=== PATIENT | male | born 1935 | race Caucasian/White ===

== ENCOUNTER → 2017-11-25 | Outpatient (CLI) | payer OTHER ==
[~2017-11-25] MED LIST: ASPIR 8181 MG PO; ATIVAN0.5 MG PO; BLOOD THINNER; CEPHALEXIN 500500 M3 PO; HALDOL 0.5 MG0.5 MG PO; HYDROCERIN CREA1 JAR TOP; HYDROCODONE-AP1 EAC6 PO; IRON325 PO; MSL20MG/ML PO; PLAVIX 75 MG TA75 M1 PO; TOPROL XL25 MG PO; TRIAMCINOLONE A80 G2 TOP; TYLENOL325 MG PO; VITAMIN B-121000 MCG PO; VITAMIN B-12500 MCG PO; VITAMINC500 PO
== END ==
LOC: ULTRA 07:33
DX: I65.23 Occlusion and stenosis of bilateral carotid arteries (principal)

== ENCOUNTER → 2018-04-03 | Outpatient (CLI) | payer OTHER ==
[~2018-04-03] MED LIST changes: -ATIVAN0.5 MG PO; -HALDOL 0.5 MG0.5 MG PO; -MSL20MG/ML PO; -PLAVIX 75 MG TA75 M1 PO
== END ==
LOC: RAD 12:00
DX: J90 Pleural effusion, not elsewhere classified (principal); M50.323 Other cervical disc degeneration at C6-C7 level; R59.9 Enlarged lymph nodes, unspecified

== ENCOUNTER 2018-04-27 14:15 | Inpatient (IN) | payer OTHER ==
[~2018-04-27] VITALS: Ht 172.7 cm; Wt 97.5 kg
--- NOTE | ~2018-04-27 | HC ---
[facility] [place] [address] CONSULTATION Name: HAKAN MARINO Steve Room #: 242-P [facility] IN ..#: [id number] Admission: 04/27/18 Attend Phys: Oksana Duncan MD Discharge: Date of : 34 Report #: [id number] THIS REPORT FOR: //name// CC: Oksana TYSON unknown DATE OF SERVICE: 04/30/2018 CHIEF COMPLAINT: Gluteal pressure ulceration. HISTORY OF PRESENT ILLNESS: This is an 82-year-old male patient who is admitted and seen in the Intensive Care Unit with septic shock. He was noted to have right gluteal ulceration. I have been asked to see him with regard to wound care. The patient apparently fell several weeks ago and not been feeling well since that time, he developed cough and some diarrhea and chills. He was brought to the Emergency Department, found to be in respiratory failure, required intubation and remains in the Intensive Care Unit on multiple drips. He is intubated and sedated at this time, is not able to provide any information about himself. The patient's chart is reviewed. He is noted to have a history of severe peripheral vascular disease, chronic iron deficiency anemia and cellulitis. ALLERGIES: None. FAMILY HISTORY: Positive for diabetes and heart disease. SOCIAL HISTORY: The patient has a history of tobacco abuse for almost 50 years. No history of alcohol abuse. MEDICATIONS: Include albuterol, Zithromax, chlorhexidine, dexmedetomidine, famotidine, glucagon, magnesium oxide, Zosyn, potassium. REVIEW OF SYSTEMS: Unobtainable due to the patient's unresponsiveness. PHYSICAL EXAMINATION: VITAL SIGNS: At this time include pulse 73, respiratory rate 15, blood pressure 118/59, temperature 97.9. GENERAL: This is a chronically ill-appearing male patient who is sedated on a ventilator. HEENT: Head is normocephalic. Nose is clear. Throat demonstrates endotracheal tube in place. NECK: Supple. LUNGS: Diminished. HEART: Tachycardic without murmur. ABDOMEN: Soft. EXTREMITIES: The gluteal region demonstrates what appears to be a stage 3 [facility] [address] [place] [address] CONSULTATION Name: HAKAN MARINO Steve Room #: 242-P [facility] IN [facility]#: [id number] Admission: 04/27/18 Attend Phys: Oksana Duncan MD Discharge: Date of : 34 Report #: [id number] pressure ulcer on the right buttock. It is relatively clean and granulating. It does not appear to be new. It has slightly rolled edges indicating that this has likely been present prior to this admission; although, I cannot find any records to review at this time. NEUROLOGIC: The patient is not responsive. He is sedated. LABORATORY DATA: Sodium 146, potassium 4.0, chloride 112, CO2 of 26, BUN 10, creatinine 0.7. Albumin is low at 1.7. White blood cell count is 9000, hemoglobin 8.2. CLINICAL IMPRESSION: 1. Stage 3 pressure ulcer to the right gluteal region. This does not appear to be an acute pressure ulceration by its clinical appearance and I suspect it was present prior to hospitalization. We will look for prehospitalization medical records. 2. Sepsis. 3. Respiratory failure requiring mechanical ventilation. 4. Severe protein-calorie malnutrition. RECOMMENDATIONS: At this point in time, the patient was placed in low air loss mattress. He will need q. 2 hour turning and repositioning. PRAFO boots to both lower extremities for pressure prophylaxis of the heel. We will recommend a bordered foam to the gluteal ulcer to be changed Saturday, Saturday, Saturday and p.r.n. soiling or displacement. He would need aggressive nutritional support to maximize wound healing. I appreciate being asked to see him in consultation. <ELECTRONICALLY SIGNED> By: Edward Jurado MD 05/01/18 0745 0314 Edward Jurado MD /nt
--- NOTE | ~2018-04-27 | EKG ---
[address] [employer] [place] [address] ELECTROCARDIOGRAM REPORT Name: MARINOHAKAN Room #: 238-P [facility] IN M.R.#: [id number] Admission: 04/27/18 Attend Phys: Oksana Duncan MD Discharge: Date of : 34 Report #: [id number] THIS REPORT FOR: //name// [facility] ED Test Date: 2018-04-27 Test Time: 14:28:11 Pat Name: HAKAN MARINO Department: Room: Gender: M Forensic Chemist: TSTOR : 1935 Requested By: Roel Greenwood Order Number: [id number] MD: Ravinder Jimenez Measurements Intervals [place] Rate: 151 P: ME: QRS: 79 QRSD: 96 T: 269 QT: 320 QTc: 508 Interpretive Statements Atrial fibrillation with rapid V-rate Repolarization abnormality, prob rate related Compared to ECG 12/16/2015 07:52:12 Early repolarization now present Sinus rhythm no longer present Electronically Signed On 04-28-2018 8:43:20 CDT by Ravinder Jimenez [email or web address] <ELECTRONICALLY SIGNED> By: Ravinder Jimenez MD, [facility] 04/28/18 0843 1428 1428 Ravinder Jimenez MD, [facility] /EPI
--- NOTE | ~2018-04-27 | PATH ---
[facility] [address] [address] PATHOLOGY RPT PROCEDURE Name: HAKAN MARINO Room #: 242-P [facility] IN M.R.#: [id number] Admission: 04/27/18 Date of : 34 Discharge: Report #: [id number] Path Case #: [id number] Note [facility] Accession Number: [id number] TESTS RESULT FLAG UNITS REF RANGE LAB Clinician Provided Cytology Information No. of containers..01 Other (Miscellaneous) Source: 01 NECK, R SUPRACLAVICULAR DIAGNOSIS: [A] 02 NECK LYMPH NODE, RIGHT SUPRACLAVICULAR, FINE NEEDLE ASPIRATION POSITIVE FOR MALIGNANT CELLS. UNDIFFERENTIATED SMALL CELL CARCINOMA IS PRESENT. THIS INTERPRETATION INCLUDES EVALUATION OF A CELL BLOCK. Comment: Examination shows crushed small blue cells in a background of lymphoid cells indicating aspiration of a lymph node. Part of this specimen was sent for flow cytometric analysis ([id number])to [facility]. It showed a low number of lymphocytes with no flow immunophenotypic evident of a lymphoproliferative disorder based on a limited antobody panel and an abnormal CD56 positive cell population. Please see separate report for details. Immunoshistochemical stains are performed on the cell block. CD56 and CD45 are repeated to characterize the cells in an architectural context. TTF1 / CD56 are strongly reactive. Ae1/Ae3 shows reactivity in a golgi-like pattern. CD45 is non reactive. Findings support a small cell carcinoma. The background of lymphoid tissue is highly suggestive of a metastatic small cell carcinoma. Clinical correlation is suggested. [place]: Dr. Miley Meza. Findings are conveyed to Dr. Mauricio Vasquez at approximately 9:45 AM on 05/06/18. Pathologist ICD10: 02 C34.90 Signed out by: Tayla Carrillo MD, Pathologist NPI- [id number] Performed by: 03 Danii Nova, Camp Coordinator ([facility]) Gross description: 01 25ML, COLORLESS, CLOUDY /LCS FLAG LEGEND: L-Low Normal,H-High Normal,LL-Alert Low,HH-Alert High <-Panic Low,>-Panic High,A-Abnormal,AA-Critical Abnormal Performed at: [address] [address] PATHOLOGY RPT PROCEDURE Name: NEDHAKAN Steve Room #: 242-P [facility] IN M.R.#: [id number] Admission: 04/27/18 Date of : 34 Discharge: Report #: [id number] Path Case #: [id number] 01 [facility] [address] [place] [address] Jhonatan Ramirez MD, 02 [facility] [address] Tayla Carrillo MD, 03 [facility] [address] [address] Justice Nicholson MD, Performed at: 01 [facility] [address], [place], [place] [id number] MD Jhonatan Ramirez MD Phone: [phone]
--- NOTE | ~2018-04-27 | HC ---
[facility] [place] [address] CONSULTATION Name: HAKAN MARINO Room #: 242-P [facility] IN M.R.#: [id number] Admission: 04/27/18 Attend Phys: Oksana Duncan MD Discharge: 05/08/18 Date of : 34 Report #: [id number] THIS REPORT FOR: //name// CC: Oksana Duncan [facility] unknown DATE OF SERVICE: 04/28/2018 CONSULTATION: Infectious diseases. HISTORY OF PRESENT ILLNESS: The patient is an 82-year-old white male admitted to [facility] on the afternoon of 04/27/2018 after he was found down. According to the family reports, he was "not feeling very good for several weeks." He had a few falls. He was complaining of diarrhea for about 6 months. Recently, he has been having more cough, more diarrhea. Workup showed right-sided pulmonary white-out suggestive of post-obstruction pneumonia and atelectasis due to cancer. Infectious Disease consultation was requested to assist with further evaluation and antibiotic management. PAST MEDICAL HISTORY: Significant for anemia and peripheral artery disease. The patient has really been in pretty good health prior to recent events. MEDICATION RECONCILIATION: Current medications include Zosyn 3.375 grams every 8 hours, vancomycin 750 mg every 12 hours, 2 mg p.r.n., glucagon, glucose, norepinephrine as needed for condition, fentanyl p.r.n., midazolam drip p.r.n. The patient did receive a single dose of levofloxacin while in the ER and succinylcholine and etomidate for intubation. FAMILY HISTORY: Noncontributory. SOCIAL HISTORY: Chart shows that the patient is , it mentions past history of tobacco use, but not quantified. No history available of alcohol or drugs. REVIEW OF SYSTEMS: Unavailable as the patient is sedated on a ventilator. PHYSICAL EXAMINATION: GENERAL: The patient appears chronically ill, somewhat wasted, sedated on ventilator, but comfortable, in no distress. VITAL SIGNS: Show the patient is afebrile. ENT: Demonstrates some temporal wasting. Nasogastric and endotracheal tubes are in position. SKIN: Very sallow without any apparent rash nor lesions. HEART: Sounds S1, S2. CHEST: Breath sounds are diminished. ABDOMEN: Belly is thin, soft, not tender. [address] [address] CONSULTATION Name: HAKAN MARINO Room #: 242-[facility] IN .R.#: [id number] Admission: 04/27/18 Attend Phys: Oksana Duncan MD Discharge: 05/08/18 Date of : 34 Report #: [id number] EXTREMITIES: Thin, otherwise unremarkable. The Park catheter is present and has clear urine. LABORATORY DATA: White count is 12.1, hemoglobin 8.9, hematocrit 29%, platelets 536,000. Electrolytes, BUN and creatinine are normal, glucose 124. Liver function tests are normal. Procalcitonin is normal. Lactate is slightly elevated at 3.2. BNP slightly elevated at 815, troponin 0.12. Blood gas on 50% on the ventilator 7.40 pH, pCO2 of 43, pO2 of 81. Urinalysis is negative. Chest x-ray showed changes as noted above. In addition, there is diffuse adenopathy in the chest as well as probable masses. EKG shows atrial fibrillation with pulse of 150. ASSESSMENT AND PLAN: In summary, a patient who has been having dwindling health over several months, he was found down and workup demonstrates a white-out of the right lung with probable mass and obstruction. The patient has been started on vancomycin and Zosyn, which will be appropriate for severe pneumonia. So far, there has been no sign of methicillin-resistant Staphylococcus aureus or other Gram-positive on any of the cultures. The patient has had minimal nosocomial exposures, so MRSA is unlikely and I think we could probably stop the vancomycin unless cultures show organism which would require this. We will continue Zosyn. We can check urinary antigens for legionella and pneumococcus. The diagnosis probably come from sputum cytology and culture either via suction or endoscopy. Endoscopy may be helpful to relieve the obstruction and re-inflate the right-sided lobes of the lung. For now, we will continue supportive therapy, ventilator, IV Zosyn and await results of cultures and cytology. If indeed this is a widely spread cancer in this debilitated elderly gentleman, the prognosis would be very poor. This is just infection with obstruction due to mucus, want to anticipate potential for excellent recovery with antibiotic and supportive therapy. I appreciate the opportunity of input in the care of this unfortunate gentleman. Thank you for requesting Infectious Disease consultation. Dr. Briceño will black pickler the case on Saturday. <ELECTRONICALLY SIGNED> By: Real Arriaza MD 05/13/18 2156 2230 0346 Real Arriaza MD /nt
--- NOTE | ~2018-04-27 | 2DMMODE ---
[facility] [address] [place] [address] 2 D/M-MODE ECHOCARDIOGRAM Name: HAKAN MARINO Room #: 238-P [facility] IN ..#: [id number] Admission: 04/27/18 Attend Phys: Oksana Duncan, Discharge: Date of : 34 Date of Service: 04/28/18 1053 Report #: [id number] THIS REPORT FOR: //name// APPROVED REPORT Study performed: 04/28/2018 08:12:53 EXAM: Comprehensive 2D, Doppler, and color-flow Echocardiogram Patient Location: Echo lab Room #: [facility] Status: routine BSA: 1.86 HR: 71 bpm BP: 105/56 mmHg Other Information Study Quality: Technically Difficult Technically limited study due to lung disease, patient on ventilator, inability to position patient. Indications hypotension, afib with RVR 2D Dimensions RVDd: 36.13 mm LVEF(%): 57.75 (>50%) IVSd: 12.25 (7-11mm) LVOT Diam: 18.73 (18-24mm) LVDd: 26.98 mm PWd: 11.43 (7-11mm) LVDs: 19.15 (25-40mm) Aortic Root: 27.35 mm IVC: 15.00 mm Harrington's LVEF: 57.75 % Volumes Left Atrial Volume (Systole) Single Plane 4CH: 30.29 mL Single Plane 2CH: 31.28 mL LA ESV Index: 18.00 mL/m2 Aortic Valve LVOT Max P.41 mmHg LVOT Max V: 0.92 m/s NOLVIA Vmax: 1.72 cm2 Mitral Valve E/A Ratio: 0.7 MV Decel. Time: 299.90 ms [facility] [place] [place] [address] 2 D/M-MODE ECHOCARDIOGRAM Name: HAKAN MARINO Steve Room #: 238-[facility]#: [id number] Admission: 04/27/18 Attend Phys: Oksana Duncan, Discharge: Date of : 34 Date of Service: 04/28/18 1053 Report #: [id number] MV E Max Arcadio.: 0.55 m/s MV A Arcadio.: 0.77 m/s MV PHT: 86.97 ms IVRT: 147.64 ms Pulmonary Valve PV Peak Arcadio.: 1.08 m/s PV Peak Gr.: 4.67 mmHg Tricuspid Valve TR Peak Arcadio.: 2.67 m/s RAP Estimate: 10.00 mmHg TR Peak Gr.: 28.45 mmHg PA Pressure: 38.00 mmHg Left Ventricle The left ventricle is normal size. Regional wall motion is not well visualized but grossly normal. There is normal left ventricular wall thickness. The left ventricular systolic function is normal. The left ventricular ejection fraction is within the normal range. LVEF is 60-65%. Grade I - abnormal relaxation pattern. Right Ventricle The right ventricle is normal size. The right ventricular systolic function is normal. Atria The left atrium size is normal. The right atrium size is normal. Aortic Valve Mild aortic valve calcification, trileaflet No aortic regurgitation is present. There is no aortic valvular stenosis. Mitral Valve The mitral valve is normal in structure. There is no mitral valve regurgitation noted. No evidence of mitral valve stenosis. Tricuspid Valve The tricuspid valve is normal in structure. Trace to mild tricuspid regurgitation. PAP is estimated at 38 mmHg. Pulmonic Valve The pulmonary valve is normal in structure. Trace pulmonic regurgitation. Great Vessels The aortic root is normal in size. IVC is normal in size and [address] [address] 2 D/M-MODE ECHOCARDIOGRAM Name: NEDHAKAN L Room #: 238-P [facility] IN .R.#: [id number] Admission: 04/27/18 Attend Phys: Oksana Duncan, Discharge: Date of : 34 Date of Service: 04/28/18 1053 Report #: [id number] collapses <50% with respirations. Pericardium There is no pericardial effusion. <Conclusion> The left ventricular systolic function is normal. Regional wall motion is not well visualized but grossly normal. LVEF is 60-65%. Mild diastolic dysfunction Mild aortic valve calcification, trileaflet. No aortic regurgitation or stenosis The mitral valve is normal in structure. No mitral valve regurgitation noted. Trace to mild tricuspid regurgitation. Pulmonary artery pressure estimated at 38 mmHg. There is no pericardial effusion. <ELECTRONICALLY SIGNED> By: Ravinder Jimenez MD, [facility] 04/28/18 1053 1053 1053 Ravinder Jimenez MD, FACC /INF
--- NOTE | ~2018-04-27 | PATH ---
[facility] [address] [place] [address] PATHOLOGY RPT PROCEDURE Name: HAKAN MARINO Room #: 242-P [facility] IN ..#: [id number] Admission: 04/27/18 Date of : 34 Discharge: Report #: [id number] Path Case #: [id number] Note [facility] Accession Number: [id number] TESTS RESULT FLAG UNITS REF RANGE LAB Clinician Provided Cytology Information No. of containers..01 Other (Miscellaneous) Source: SPUTUM DIAGNOSIS: 02 SPUTUM NEGATIVE FOR MALIGNANT CELLS. PULMONARY MACROPHAGES (DUST CELLS) ARE PRESENT. MARKED ACUTE INFLAMMATION. Signed out by: 02 Tayla Carrillo MD, Pathologist NPI- [id number] Performed by: 03 Danii Nova, Driller'S Offsider ([facility]) Gross description: 01 4ML, REDDISH PINK, CLOUDY /LCS FLAG LEGEND: L-Low Normal,H-High Normal,LL-Alert Low,HH-Alert High <-Panic Low,>-Panic High,A-Abnormal,AA-Critical Abnormal Performed at: [address] [place] [address] Jhonatan Ramirez MD, [address] [address] Tayla Carrillo MD, [address] [address] Justice Nicholson MD, Performed at: [address] [place] [id number] MD Jhonatan Ramirez MD Phone: [phone]
--- NOTE | ~2018-04-27 | PATH ---
[facility] [address] [place] [address] PATHOLOGY RPT PROCEDURE Name: HAKAN MARINO Room #: 242-P [facility] IN .R.#: [id number] Admission: 04/27/18 Date of : 34 Discharge: Report #: [id number] Path Case #: [id number] Note [facility] Accession Number: [id number] TESTS RESULT FLAG UNITS REF RANGE LAB Clinician Provided Cytology Information No. of containers..01 Other (Miscellaneous) Source: BRONCH WASH DIAGNOSIS: 02 BRONCH WASH NEGATIVE FOR MALIGNANT CELLS. NORMAL BRONCHIAL CELLS AND MACROPHAGES ARE PRESENT. PULMONARY MACROPHAGES (DUST CELLS) ARE PRESENT. PULMONARY MACROPHAGES PRESENT, INDICATIVE OF LOWER RESPIRATORY TRACT SAMPLING. Signed out by: Tayla Carrillo MD, Pathologist NPI- [id number] Performed by: Archie Krishna, Veneer Press Operator ([facility]) Gross description: 01 6ML, PINK, CLOUDY /LCS FLAG LEGEND: L-Low Normal,H-High Normal,LL-Alert Low,HH-Alert High <-Panic Low,>-Panic High,A-Abnormal,AA-Critical Abnormal Performed at: [address] [place] [address] Jhonatan Ramirez MD, [address] [address] Tayla Carrillo MD, Performed at: [address], [place], [place] [id number] MD Jhonatan Ramirez MD Phone: [phone]
--- NOTE | ~2018-04-27 | HC ---
[facility] [place] [address] CONSULTATION Name: HAKAN MARINO Steve Room #: 242-P [facility] IN M.R.#: [id number] Admission: 04/27/18 Attend Phys: Oksana Duncan MD Discharge: Date of : 34 Report #: [id number] THIS REPORT FOR: //name// CC: Oksana Duncan [facility] unknown DATE OF SERVICE: 04/28/2018 REASON FOR CONSULTATION: Ventilator management and right lung process. IMPRESSION: 1. Acute respiratory failure. 2. Right lung atelectasis, neoplastic versus infectious etiology. 3. Supraclavicular, mediastinal and right hilar adenopathy. 4. Atrial fibrillation. 5. Microcytic anemia. 6. Lactic acidosis. 7. Peripheral vascular disease. 8. Shock with hypotension, on Levophed. 9. Elevated troponin. PLAN: We will discuss with family regarding a bronchoscopy. I would like to see him more stable than this; however, I feel it may give us more information to discuss with the family. We will stop if there is any abnormality. May need to see if Radiology can biopsy supraclavicular node. HISTORY OF PRESENT ILLNESS: An 82-year-old male who comes in, had a fall a few weeks ago, not feeling well since that time. Cough, loose stools. No fever or chills per chart. He was brought to the Emergency Room, required intubation. The patient is unable to give further history. PAST MEDICAL HISTORY: Per chart. 1. Severe peripheral vascular disease. 2. Chronic iron-deficiency anemia. 3. Cellulitis. MEDICATIONS: Include Plavix. PHYSICAL EXAMINATION: VITAL SIGNS: Temperature 97.7, blood pressure 82/55, on Levophed, arouses, on ventilator, cachectic. LUNGS: Decreased on the right. HEART: Regular. ABDOMEN: Bowel sounds present. EXTREMITIES: Showed positive edema. PICC line on the right. [facility] [address] [place] [address] CONSULTATION Name: HAKAN MARINO Room #: 242-P [facility] IN [facility]#: [id number] Admission: 04/27/18 Attend Phys: Oksana Duncan MD Discharge: Date of : 34 Report #: [id number] with Radiology. CURRENT MEDICATIONS: Reviewed, include Zosyn, Zithromax, DuoNeb, Levophed, DVT and ulcer prophylaxis per primary. LABORATORY DATA: White count 9, hemoglobin 7.4, platelets 385. Sodium 141, potassium 2.7, BUN 13, creatinine 0.8, calcium 7.5. UA negative. CT chest was reviewed, consolidating process on the right, question postobstructive adenopathy noted, supraclavicular, mediastinal and right hilar; also upper abdominal peritoneal adenopathy. <ELECTRONICALLY SIGNED> By: Ilda Garcia MD 04/30/18 1550 0942 1218 Ilda Garcia MD /susy
--- NOTE | ~2018-04-27 | PATH ---
[facility] [address] [place] [address] PATHOLOGY RPT PROCEDURE Name: HAKAN MARINO Room #: 242-P [facility] IN .R.#: [id number] Admission: 04/27/18 Date of : 34 Discharge: Report #: [id number] Path Case #: [id number] Note [facility] Accession Number: [id number] TESTS RESULT FLAG UNITS REF RANGE LAB Clinician Provided Cytology Information No. of containers..01 Slide Source: BRONCHUS INTERMEDIUS DIAGNOSIS: 02 BRONCHUS INTERMEDIUS, BRONCHIAL BRUSHING SMEARS NEGATIVE FOR MALIGNANT CELLS. REACTIVE BRONCHIAL CELLS ARE PRESENT. NORMAL BRONCHIAL CELLS AND MACROPHAGES ARE PRESENT. PULMONARY MACROPHAGES (DUST CELLS) ARE PRESENT. PULMONARY MACROPHAGES PRESENT, INDICATIVE OF LOWER RESPIRATORY TRACT SAMPLING. Signed out by: 02 Tayla Carrillo MD, Pathologist NPI- [id number] Performed by: Wan Krishna, Stock Handler ([facility]) FLAG LEGEND: L-Low Normal,H-High Normal,LL-Alert Low,HH-Alert High <-Panic Low,>-Panic High,A-Abnormal,AA-Critical Abnormal Performed at: [address] [place] [address] Jhonatan Ramirez MD, [address] [address] Tayla Carrillo MD, Performed at: [address], [place], [place] [id number] MD Jhonatan Ramirez MD Phone: [phone]
--- NOTE | ~2018-04-27 | PATH ---
[facility] [address] [place] [address] PATHOLOGY RPT PROCEDURE Name: HAKAN MARINO Room #: 242-P [facility] IN .R.#: [id number] Admission: 04/27/18 Date of : 33 Discharge: Report #: [id number] Path Case #: [id number] Note [facility] Accession Number: [id number] TESTS RESULT FLAG UNITS REF RANGE LAB Clinician Provided Cytology Information No. of containers..01 Other (Miscellaneous) Source: 01 BRONCHUS INTERMEDIUS DIAGNOSIS: 02 BRONCHUS INTERMEDIUS, BRUSH TIP RINSE NEGATIVE FOR MALIGNANT CELLS. REACTIVE BRONCHIAL CELLS ARE PRESENT. NORMAL BRONCHIAL CELLS AND MACROPHAGES ARE PRESENT. PULMONARY MACROPHAGES (DUST CELLS) ARE PRESENT. PULMONARY MACROPHAGES PRESENT, INDICATIVE OF LOWER RESPIRATORY TRACT SAMPLING. Signed out by: 02 Tayla Carrillo MD, Pathologist NPI- [id number] Performed by: Archie Krishna, State Manager ([facility]) Gross description: 01 1 BRUSH TP /LCS FLAG LEGEND: L-Low Normal,H-High Normal,LL-Alert Low,HH-Alert High <-Panic Low,>-Panic High,A-Abnormal,AA-Critical Abnormal Performed at: [address] [place] [address] Jhonatan Ramirez MD, [address] [address] Tayla Carrillo MD, Performed at: [address], [place], [place] [id number] MD Jhonatan Ramirez MD Phone: [phone]
--- NOTE | ~2018-04-27 | HC ---
[facility] [place] [address] CONSULTATION Name: HAKAN MARINO Room #: 242-P [facility] IN M.R.#: [id number] Admission: 04/27/18 Attend Phys: Oksana Duncan MD Discharge: Date of : 34 Report #: [id number] THIS REPORT FOR: //name// CC: Oksana Duncan FAM unknown Mauricio Vasquez MD DATE OF SERVICE: 05/07/2018 Palliative Care Consultation REQUESTING PHYSICIAN: Dr. Vasquez. CHIEF COMPLAINT: Hypoxic respiratory failure. HISTORY OF PRESENT ILLNESS: The patient is an 82-year-old male who presented on 04/27 and he had presented with overall general malaise. He had fall 2 weeks prior and ever since had not been feeling well, has had some issues with cough and diarrhea prior to arrival. The patient was found in the emergency room to have complete whiteout of his right lung. 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 The patient has a history of peripheral vascular disease and additionally iron deficiency anemia, for which he has had visits to the hospital for as low as hemoglobin of 4 and has had transfusion. Subsequent, after admission, the patient has been treated for what is likely postobstructive pneumonia. Additionally, he has had thrombus involving the right cephalic, axillary, and brachial veins. He is on heparin for this. He has also had significant encephalopathy since arrival. The patient's family including three brothers, three sisters, and additional family including niece and nephews have been informed of his cancerous process that this is metastatic in nature and it is unfortunately unlikely to be amenable to any kind of treatment at this time. The patient has been informed of the cancerous process, although I am not able to elicit more information at this time due to intubation. PAST MEDICAL HISTORY: Again significant for peripheral artery disease. He has had significant weight loss. Additionally, he has had a history of anemia that has been severe and tight. He has developed atrial fibrillation and has had RVR during this admission. PAST SURGICAL HISTORY: He had bypass on the right lower extremity for his peripheral vascular disease. SOCIAL HISTORY: Remote tobacco use for approximately 50 years. No drug or alcohol use. [address] [address] CONSULTATION Name: HAKAN MARINO Room #: 242-P [facility] IN ..#: [id number] Admission: 04/27/18 Attend Phys: Oksana Duncan MD Discharge: Date of : 34 Report #: [id number] ALLERGIES: No known drug allergies. FAMILY HISTORY: Significant for diabetes and heart disease. CODE STATUS: DNR at this time. HOME MEDICATIONS: Plavix, aspirin. REVIEW OF SYSTEMS: Unable to obtain at this time, although he denies pain. PHYSICAL EXAMINATION: VITAL SIGNS: Temperature was 36.6, pulse 75, respirations 18, blood pressure 97/59, 99% on nasal cannula . GENERAL: The patient is alert, difficulty assessing what his orientation is at this time. HEENT: Extraocular muscles appear to be intact. He has no scleral icterus, no conjunctival injection. CARDIOVASCULAR: He has irregularly irregular rate and rhythm currently, but he is not tachycardic at this time. Diffuse edema noted in upper lower extremities, approximately 2 to 3+. ABDOMEN: Soft, nontender to palpation, but diminished bowel sounds. LABORATORY DATA: This included most recent hemoglobin 7.2. His white blood cells are 10.5, creatinine 0.7. ASSESSMENT AND PLAN: 1. Acute hypoxic respiratory failure. At this time, the patient has had significant recovery in her attention level. CPAP trial was performed today. It appears the patient is ready for extubation. This was discussed with staff and with Dr. Gillespie. Extubate this afternoon did discuss with family, did discuss with the patient. They all desired extubation. There is a known risk to all of them of the possibility of a further decline in his respiratory status and reintubation including also recurrence of pneumonia. They are amenable to this plan at this time. 2. Small cell lung cancer, appears to have most likely not responsive to significant treatment at this time and given debilitated state, he would not be an excellent candidate for that. Did discuss with family regarding the patient's future wishes. It is difficult to obtain information from the patient at this time. They were in an agreement that pursuing hospice type situation if the patient were to get out of the hospital situation without requiring palliative or end-of-life care. Did discuss an inpatient hospice facility. They are agreeing to this, did confirm code status to be DNR status. We will discuss further with the patient once extubated. 3. Pneumonia, likely postobstructive. We will monitor overnight. If continues to be stable without ventilator, we will discontinue medications aside from those for comfort. Did discuss pneumonia is likely to recur and this would [facility] [address] [place] [address] CONSULTATION Name: HAKAN MARINO Room #: 242-P ADM IN M.R.#: [id number] Admission: 04/27/18 Attend Phys: Oksana Duncan MD Discharge: Date of : 34 Report #: [id number] likely take his life if not for other conditions. 4. Arterial thrombus, multiple areas, continuing heparin at this time, as family is currently meeting with the patient. Tomorrow, we would likely discharge. By: [id number] Cesar Lentz DO /nt
--- NOTE | ~2018-04-27 | H ---
[facility] [place] [address] HISTORY AND PHYSICAL Name: HAKAN MARINO Room #: 170-10 ADM IN .R.#: [id number] Admission: 04/27/18 Attend Phys: Oksana Duncan MD Discharge: Date of : 34 Report #: [id number] THIS REPORT FOR: //name// CC: Oksana Duncan [facility] unknown DATE OF SERVICE: 04/27/2018 REASON FOR PRESENTATION: Brought by his brother because of not feeling well. HISTORY OF PRESENT ILLNESS: The details of the history of present illness are obtained from the patient's brother as the patient is currently intubated and not able to provide me with the details of his present illness. This is an 82-year-old with extensive past medical history including peripheral vascular disease. He is also known to have remote history of iron deficiency anemia with a remote history of hemoglobin being all the way down to 4 for which he was treated accordingly in [facility]. He had a fall a couple of weeks ago and has not been feeling well ever since. He called his brother reporting to him that he had some issues with cough, diarrhea in the last few days. No reported fever or chills. Brother decided to bring him to the Emergency Room for further evaluation and management where he was found to be tachypneic, tachycardic with what seems to be a complete whiteout of his left lung. He was electively intubated after the patient expressed to the ER physician that he wants everything to be done for him. He was initiated on a sepsis protocol and will be admitted to the ICU for further management. Brother tells me that the patient is not known to have any lung issues previously. No known cardiac issues. Specifically, no coronary artery disease. No recent chest pain, no dyspnea on exertion, no orthopnea. The patient's health deteriorated in the last 6 months. Before that he used to be completely independent and able to do all of his daily activities. Other than the aforementioned peripheral vascular disease surgery and remote history of cellulitis and the iron deficiency anemia, the patient is not known to have any other comorbid conditions. MEDICATIONS: Per the patient's brother, Plavix, aspirin, but he does not recall the doses. PAST MEDICAL HISTORY: 1. Peripheral vascular disease, status post bypass on the right side. 2. Iron deficiency anemia with extensive workup per the patient's brother. No source found for his anemia. He is not really sure if he has been evaluated by Hematology. 3. Brother is not aware of coronary artery disease, diabetes mellitus, hypertension, any other chronic conditions. [place] [id number] HISTORY AND PHYSICAL Name: HAKAN MARINO Room #: 170-[facility] [place] [facility].#: [id number] Admission: 04/27/18 Attend Phys: Oksana Duncan MD Discharge: Date of : 34 Report #: [id number] ALLERGIES: No known drug allergies. SOCIAL HISTORY: There is remote history of tobacco abuse for almost 50 years. No drug or alcohol abuse. FAMILY HISTORY: Significant for diabetes and heart disease. REVIEW OF SYSTEMS: This is again obtained from the patient's brother. GENERAL: Weakness and deteriorating overall condition. CARDIOVASCULAR: No chest pain or palpitation. PULMONARY: Significant for cough, no hemoptysis. GASTROINTESTINAL: Diarrhea and decreased p.o. intake. GENITOURINARY: Some incontinence issues, but no frequency, no urgency. PHYSICAL EXAMINATION: VITAL SIGNS: On arrival, the patient's heart rate was in the 120-150 range and he was in AFib. Temperature was 36.6. He is currently intubated with a blood pressure of 116/63 while on Levophed. HEAD AND NECK: ET tube in place. GENERAL: Chronically ill appearing. CHEST: Decreased air entry on the left side with rhonchi. CARDIOVASCULAR: Irregular with no rub detected. ABDOMEN: Soft, nontender. EXTREMITIES: Lower extremities +2 edema with an evidence of scars for his fem-pop bypass on the right side. LABORATORY DATA: Reviewed. Blood gas revealed a pH of 7.3, pCO2 of 43, lactate 2.5. White blood cell count 12.1, hemoglobin 8.9, MCV of 67, platelet of 535. Sodium 140, potassium 3.5, BUN 16, creatinine 1, blood glucose 124. Troponin mildly elevated at 0.14. Urine is pending. Chest x-ray reviewed complete right hemothorax opacification with what seems to be either pleural effusion or consolidations. ASSESSMENT, IMPRESSION AND PLAN: 1. Acute respiratory failure. 2. Severe sepsis. 3. Atrial fibrillation with rapid ventricular response. 4. Anemia with a very low MCV. 5. Lactic acidosis. 6. Total opacification of the right lung, hemothorax with what seems to be either an infusion or an infectious community-acquired pneumonitis. 7. Elevated brain natriuretic peptide. 8. Malnutrition, on admission. 9. Severe peripheral vascular disease with history of fem-pop bypass in the past. [facility] [address] [place] [address] HISTORY AND PHYSICAL Name: HAKAN MARINO Room #: 170-10 ADM IN [place].Ricardo.#: [id number] Admission: 04/27/18 Attend Phys: Oksana Duncan MD Discharge: Date of : 34 Report #: [id number] 10. Admission to the Intensive Care Unit. 11. Intubated in the ER. 12. Initiate severe sepsis protocol. 13. Pulmonary consultation. 14. Infectious Disease consultations. 15. IV fluid plus pressors to support his hemodynamics. 16. We will see if the above-mentioned measures will help his heart rate. Otherwise, we will obtain Cardiac consultation. He previously had atrial fibrillation after his fem-pop bypass and this was managed by the Cardiology Team, specifically Dr. Guerrero, with Electrophysiological Cardiology had seen him. 17. Cultures were obtained appropriately from the Emergency Room. We will add urine culture. 18. CT of the chest to further investigate the source for the opacification of his right hemothorax. 19. Routine ICU care when it comes to the vital signs, blood sugar, No Anticoagulation for now till we rule out active bleeding given his anemia and his previous history 20. Discussed the condition of the patient with his brother. As for now, he is a full code; however, his brother wants to reevaluate the condition of the patient in 24 hours to further decide about the future plans of care for his brother. Of note is the fact that the patient was alert when he presented to the Emergency Room and he requested full measures and intubation to be implemented. 21. It does look like that the patient has very significant anemia with a very low MCV. GI has evaluated him in the past. He had an EGD and a colonoscopy done in the past; however, I am not really sure if he has been evaluated by Hematology. If all measures to be implemented, we will have to obtain his [facility] to decide whether to consult with the Hematology and the GI here. <ELECTRONICALLY SIGNED> By: Oksana Duncan MD 04/27/18 [id number] Oksana Duncan MD /nt
[2018-04-27 14:35] VITALS: BP 92/63
[2018-04-27 14:50] LABS: HEMOGLOBIN 8.9 gm/dL (14.0-18.0)
[2018-04-27] MEDS ORDERED: PLAVIX 75 MG TA75 M1 PO (14:52)
[2018-04-27 14:54] LABS: CALCIUM 8.7 mg/dL (8.5-10.1); POTASSIUM 3.5 mmol/L (3.5-5.1)
[2018-04-27 14:58] LABS: ABSOLUTE NEUTROPHILS 10.6 thou/uL (1.4-8.2); BASOPHILS 0.2 % (0.0-2.0); LYMPHOCYTES 3.8 % (24.0-44.0); MONOCYTES 8.3 % (1.0-8.0); PLATELET COUNT 535 thou/uL (150-400); POLYS 87.7 % (36.0-66.0); RBC 4.47 mil/uL (4.50-6.00); RDW 17.5 % (10.5-14.5); WBC 12.1 thou/uL (4.0-11.0)
[2018-04-27 15:00] LABS: HEMATOCRIT 29.9 % (42.0-52.0); MCH 20.1 pg (26.0-34.0); MCHC 29.9 g/dL (28.0-37.0); MCV 67.3 fL (80.0-100.0)
[2018-04-27 15:03] LABS: ALBUMIN 2.4 g/dL (3.4-5.0); TOTAL BILIRUBIN 0.5 mg/dL (<0.1-1.0); TOTAL PROTEIN 7.5 g/dL (6.4-8.2); TROPONIN-I 0.12 ng/mL (<0.06)
[2018-04-27 15:31] LABS: ANISOCYTOSIS 3+
[2018-04-27 15:32] LABS: HYPOCHROMASIA 1+; MICROCYTES 2+; POLYCHROMASIA 1+
[2018-04-27 15:33] LABS: OVALOCYTES OCCASIONAL
[2018-04-27 15:37] LABS: BE(vivo) 1.2 mmol/L (-2 to +3); HCO3 26.2 mmol/L (22.0-26.0); PCO2 43.4 mmHg (35.0-45.0); PO2 80.9 mmHg (80.0-100.0); pH 7.398 (7.360-7.450); sO2 95.9 % (92.0-98.0)
[2018-04-27 17:28] VITALS: BP 113/66
[2018-04-27 18:00] VITALS: BP 105/56
[2018-04-27 22:13] LABS: URINE BILIRUBIN NEGATIVE (Negative); URINE BLOOD NEGATIVE (Negative); URINE CLARITY CLEAR; URINE COLOR YELLOW; URINE GLUCOSE-RANDOM* NEGATIVE (Negative); URINE KETONES NEGATIVE (Negative); URINE LEUKOCYTES-REFLEX NEGATIVE (Negative); URINE NITRITE-REFLEX NEGATIVE (Negative); URINE PROTEIN (DIPSTICK) 1+ (Negative); URINE SPECIFIC GRAVITY 1.025 (1.005-1.035); URINE UROBILINOGEN 0.2 E.U./dl (0.2-1.0)
[2018-04-27 22:24] LABS: CASTS None Seen /LPF (None Seen); MUCUS None Seen strn/LPF (None Seen); SQUAMOUS None Seen /LPF (0-3); URINE RBC None Seen /HPF (0-2); URINE WBC-REFLEX None Seen /HPF (0-5)
[2018-04-27 22:25] LABS: CRYSTALS None Seen /LPF (None Seen)
[2018-04-27 23:27] LABS: AMORPHOUS URATES Many /LPF (None Seen); BACTERIA-REFLEX None Seen /HPF (None Seen)
[2018-04-28 05:21] LABS: CALCIUM 7.5 mg/dL (8.5-10.1); CREATININE 0.8 mg/dL (0.7-1.3)
[2018-04-28 05:22] LABS: POTASSIUM 2.7 mmol/L (3.5-5.1)
[2018-04-28 05:42] LABS: HEMATOCRIT 24.9 % (42.0-52.0); HEMOGLOBIN 7.4 gm/dL (14.0-18.0); MCH 20.2 pg (26.0-34.0); MCHC 29.8 g/dL (28.0-37.0); MCV 67.9 fL (80.0-100.0); RBC 3.66 mil/uL (4.50-6.00); RDW 17.5 % (10.5-14.5)
[2018-04-28 10:36] LABS: FERRITIN 24 ng/mL (26-388)
[2018-04-28 11:08] LABS: APTT 33.8 Seconds (24.5-32.8); INR 1.3; PROTIME 13.6 Seconds (9.3-11.4)
[2018-04-28 14:31] LABS: HEMATOCRIT 25.2 % (42.0-52.0); HEMOGLOBIN 7.5 gm/dL (14.0-18.0)
[2018-04-29 05:12] LABS: ABSOLUTE NEUTROPHILS 8.5 thou/uL (1.4-8.2); BASOPHILS 0.4 % (0.0-2.0); EOSINOPHILS 0.1 % (0.0-3.0); HEMATOCRIT 24.5 % (42.0-52.0); HEMOGLOBIN 7.2 gm/dL (14.0-18.0); LYMPHOCYTES 4.2 % (24.0-44.0); MCH 19.9 pg (26.0-34.0); MCHC 29.4 g/dL (28.0-37.0); MCV 67.9 fL (80.0-100.0); MONOCYTES 8.8 % (1.0-8.0); PLATELET COUNT 362 thou/uL (150-400); POLYS 86.5 % (36.0-66.0); RBC 3.61 mil/uL (4.50-6.00); RDW 17.6 % (10.5-14.5); WBC 9.8 thou/uL (4.0-11.0)
[2018-04-29 05:24] LABS: BE(vivo) 0.7 mmol/L (-2 to +3); HCO3 25.4 mmol/L (22.0-26.0); PO2 135.5 mmHg (80.0-100.0); sO2 98.7 % (92.0-98.0)
[2018-04-29 05:32] LABS: ALBUMIN 1.7 g/dL (3.4-5.0); CALCIUM 7.6 mg/dL (8.5-10.1); CREATININE 0.9 mg/dL (0.7-1.3); POTASSIUM 3.2 mmol/L (3.5-5.1); TOTAL BILIRUBIN 0.5 mg/dL (<0.1-1.0); TOTAL PROTEIN 5.7 g/dL (6.4-8.2)
[2018-04-29 06:14] LABS: HIV ANTIBODY Non Reactive (Non Reactive)
[2018-04-29 06:37] LABS: ANISOCYTOSIS 1+; HYPOCHROMASIA 3+; MICROCYTES 2+
[2018-04-29 06:38] LABS: OVALOCYTES 2+; POLYCHROMASIA 1+
[2018-04-29 13:57] VITALS: BP 107/54; BP 119/57
[2018-04-29 16:58] LABS: HEMATOCRIT 27.9 % (42.0-52.0); HEMOGLOBIN 8.5 gm/dL (14.0-18.0)
[2018-04-29 19:00] VITALS: BP 89/53
[2018-04-29 20:00] VITALS: BP 108/54
[2018-04-29 21:00] VITALS: BP 97/54
[2018-04-29 22:00] VITALS: BP 99/51
[2018-04-29 23:00] VITALS: BP 96/54
[2018-04-30] VITALS (8 sets, daily range): BP systolic 84–118; BP diastolic 48–63
[2018-04-30 04:14] LABS: CALCIUM 7.6 mg/dL (8.5-10.1); CREATININE 0.7 mg/dL (0.7-1.3)
[2018-04-30 04:28] LABS: ABSOLUTE NEUTROPHILS 7.9 thou/uL (1.4-8.2); BASOPHILS 0.4 % (0.0-2.0); EOSINOPHILS 0.3 % (0.0-3.0); HEMATOCRIT 27.7 % (42.0-52.0); HEMOGLOBIN 8.2 gm/dL (14.0-18.0); LYMPHOCYTES 4.3 % (24.0-44.0); MCH 20.7 pg (26.0-34.0); MCHC 29.8 g/dL (28.0-37.0); MCV 69.5 fL (80.0-100.0); MONOCYTES 7.6 % (1.0-8.0); PLATELET COUNT 332 thou/uL (150-400); POLYS 87.4 % (36.0-66.0); RBC 3.98 mil/uL (4.50-6.00); RDW 18.8 % (10.5-14.5)
[2018-04-30 08:23] LABS: ANISOCYTOSIS 2+; HYPOCHROMASIA 2+; MICROCYTES 2+; PLATELET ESTIMATE NORMAL
[2018-04-30 17:11] LABS: HISTOPLASMA MYCELIAL-ID Negative (Negative)
[2018-05-01] VITALS (9 sets, daily range): BP systolic 76–104; BP diastolic 50–67
[2018-05-01 04:43] LABS: CALCIUM 7.6 mg/dL (8.5-10.1); CREATININE 0.7 mg/dL (0.7-1.3); POTASSIUM 3.7 mmol/L (3.5-5.1)
[2018-05-01 04:45] LABS: ABSOLUTE NEUTROPHILS 6.7 thou/uL (1.4-8.2); BASOPHILS 0.4 % (0.0-2.0); EOSINOPHILS 0.1 % (0.0-3.0); HEMOGLOBIN 8.4 gm/dL (14.0-18.0); LYMPHOCYTES 3.1 % (24.0-44.0); MCH 20.8 pg (26.0-34.0); MCV 69.5 fL (80.0-100.0); POLYS 88.4 % (36.0-66.0); RBC 4.03 mil/uL (4.50-6.00); RDW 18.8 % (10.5-14.5); WBC 7.6 thou/uL (4.0-11.0)
[2018-05-01 04:47] LABS: PLATELET COUNT 247 thou/uL (150-400)
[2018-05-01 05:08] LABS: BE(vivo) -0.1 mmol/L (-2 to +3); HCO3 24.2 mmol/L (22.0-26.0); PO2 150.1 mmHg (80.0-100.0); pH 7.422 (7.360-7.450)
[2018-05-01 21:10] LABS: HISTOPLASMA MYCELIAL-CF Negative (Neg:<1:2)
[2018-05-02] VITALS (23 sets, daily range): BP systolic 89–123; BP diastolic 53–79
[2018-05-02 04:34] LABS: ABSOLUTE NEUTROPHILS 7.9 thou/uL (1.4-8.2); EOSINOPHILS 0.1 % (0.0-3.0); HEMATOCRIT 28.3 % (42.0-52.0); HEMOGLOBIN 8.6 gm/dL (14.0-18.0); LYMPHOCYTES 3.2 % (24.0-44.0); MCH 21.2 pg (26.0-34.0); MCHC 30.4 g/dL (28.0-37.0); MCV 69.7 fL (80.0-100.0); MONOCYTES 7.4 % (1.0-8.0); PLATELET COUNT 223 thou/uL (150-400); POLYS 88.3 % (36.0-66.0); RBC 4.06 mil/uL (4.50-6.00); RDW 19.1 % (10.5-14.5); WBC 8.9 thou/uL (4.0-11.0)
[2018-05-02 04:52] LABS: CALCIUM 7.7 mg/dL (8.5-10.1); CREATININE 0.7 mg/dL (0.7-1.3); POTASSIUM 3.7 mmol/L (3.5-5.1)
[2018-05-02 06:00] LABS: BE(vivo) -2.2 mmol/L (-2 to +3); HCO3 21.9 mmol/L (22.0-26.0); PCO2 34.7 mmHg (35.0-45.0); PO2 87.7 mmHg (80.0-100.0); pH 7.418 (7.360-7.450); sO2 96.9 % (92.0-98.0)
[2018-05-02 06:58] LABS: ANISOCYTOSIS 2+; HYPOCHROMASIA 2+; MICROCYTES 2+; PLATELET ESTIMATE NORMAL
[2018-05-02 07:01] LABS: OVALOCYTES 1+; POIKILOCYTOSIS 1+
[2018-05-02 15:54] LABS: HEMATOCRIT 28.7 % (42.0-52.0); HEMOGLOBIN 8.5 gm/dL (14.0-18.0); MCH 20.6 pg (26.0-34.0); MCHC 29.7 g/dL (28.0-37.0); MCV 69.4 fL (80.0-100.0); RBC 4.14 mil/uL (4.50-6.00); RDW 19.3 % (10.5-14.5); WBC 9.2 thou/uL (4.0-11.0)
[2018-05-02 16:03] LABS: INR 1.1; PROTIME 10.9 Seconds (9.3-11.4)
[2018-05-02 23:43] LABS: HEMATOCRIT 27.2 % (42.0-52.0); HEMOGLOBIN 8.2 gm/dL (14.0-18.0)
[2018-05-03] VITALS (15 sets, daily range): BP systolic 77–108; BP diastolic 44–64
[2018-05-03 04:48] LABS: ABSOLUTE NEUTROPHILS 6.7 thou/uL (1.4-8.2); BASOPHILS 0.3 % (0.0-2.0); EOSINOPHILS 0.2 % (0.0-3.0); HEMATOCRIT 26.8 % (42.0-52.0); HEMOGLOBIN 8.1 gm/dL (14.0-18.0); LYMPHOCYTES 4.1 % (24.0-44.0); MCH 20.9 pg (26.0-34.0); MCHC 30.2 g/dL (28.0-37.0); MCV 69.1 fL (80.0-100.0); MONOCYTES 8.5 % (1.0-8.0); PLATELET COUNT 196 thou/uL (150-400); POLYS 86.9 % (36.0-66.0); RBC 3.88 mil/uL (4.50-6.00); WBC 7.7 thou/uL (4.0-11.0)
[2018-05-03 05:09] LABS: ANISOCYTOSIS 2+; HYPOCHROMASIA 3+; MICROCYTES 2+
[2018-05-03 05:10] LABS: LARGE PLATELETS FEW; OVALOCYTES 1+; POLYCHROMASIA 1+
[2018-05-03 11:14] LABS: CALCIUM 7.7 mg/dL (8.5-10.1); CREATININE 0.7 mg/dL (0.7-1.3); POTASSIUM 3.5 mmol/L (3.5-5.1)
[2018-05-03 13:57] LABS: HEMATOCRIT 26.3 % (42.0-52.0)
[2018-05-03 21:37] LABS: HEMATOCRIT 26.6 % (42.0-52.0)
[2018-05-04] VITALS (13 sets, daily range): BP systolic 88–118; BP diastolic 45–67
[2018-05-04 04:50] LABS: CALCIUM 7.6 mg/dL (8.5-10.1); CREATININE 0.6 mg/dL (0.7-1.3); POTASSIUM 3.4 mmol/L (3.5-5.1)
[2018-05-04 05:24] LABS: HEMATOCRIT 26.5 % (42.0-52.0); MCH 20.8 pg (26.0-34.0); MCHC 30.2 g/dL (28.0-37.0); RBC 3.85 mil/uL (4.50-6.00); RDW 19.4 % (10.5-14.5); WBC 9.9 thou/uL (4.0-11.0)
[2018-05-04 05:50] LABS: HCO3 23.5 mmol/L (22.0-26.0); PCO2 37.8 mmHg (35.0-45.0); pH 7.411 (7.360-7.450); sO2 91.4 % (92.0-98.0)
[2018-05-04 14:52] LABS: HEMATOCRIT 24.3 % (42.0-52.0); HEMOGLOBIN 7.4 gm/dL (14.0-18.0); MCH 20.6 pg (26.0-34.0); MCHC 30.2 g/dL (28.0-37.0); MCV 68.1 fL (80.0-100.0); RBC 3.57 mil/uL (4.50-6.00); RDW 19.9 % (10.5-14.5); WBC 9.3 thou/uL (4.0-11.0)
[2018-05-04 20:41] LABS: HEMATOCRIT 24.7 % (42.0-52.0); HEMOGLOBIN 7.6 gm/dL (14.0-18.0)
[2018-05-05] VITALS (10 sets, daily range): BP systolic 86–160; BP diastolic 49–82
[2018-05-05 05:08] LABS: HEMATOCRIT 24.9 % (42.0-52.0); HEMOGLOBIN 7.5 gm/dL (14.0-18.0); MCH 20.7 pg (26.0-34.0); MCHC 30.1 g/dL (28.0-37.0); MCV 68.9 fL (80.0-100.0); RBC 3.61 mil/uL (4.50-6.00); RDW 19.7 % (10.5-14.5); WBC 10.5 thou/uL (4.0-11.0)
[2018-05-06] VITALS (24 sets, daily range): BP systolic 77–109; BP diastolic 45–83
[2018-05-06 05:00] LABS: ALBUMIN 1.2 g/dL (3.4-5.0); CALCIUM 7.6 mg/dL (8.5-10.1); CREATININE 0.7 mg/dL (0.7-1.3); POTASSIUM 3.7 mmol/L (3.5-5.1); TOTAL BILIRUBIN 0.4 mg/dL (<0.1-1.0); TOTAL PROTEIN 5.6 g/dL (6.4-8.2)
[2018-05-06 05:08] LABS: ABSOLUTE NEUTROPHILS 7.5 thou/uL (1.4-8.2); BASOPHILS 0.2 % (0.0-2.0); EOSINOPHILS 0.3 % (0.0-3.0); HEMATOCRIT 23.8 % (42.0-52.0); HEMOGLOBIN 7.2 gm/dL (14.0-18.0); LYMPHOCYTES 4.6 % (24.0-44.0); MCH 20.8 pg (26.0-34.0); MCHC 30.3 g/dL (28.0-37.0); MCV 68.7 fL (80.0-100.0); MONOCYTES 8.1 % (1.0-8.0); PLATELET COUNT 203 thou/uL (150-400); POLYS 86.8 % (36.0-66.0); RBC 3.47 mil/uL (4.50-6.00); RDW 20.4 % (10.5-14.5); WBC 8.6 thou/uL (4.0-11.0)
[2018-05-07] VITALS (22 sets, daily range): BP systolic 67–1225; BP diastolic 33–69
[2018-05-07 04:06] LABS: HEMATOCRIT 23.6 % (42.0-52.0); HEMOGLOBIN 7.2 gm/dL (14.0-18.0); MCH 20.9 pg (26.0-34.0); MCHC 30.6 g/dL (28.0-37.0); MCV 68.3 fL (80.0-100.0); RBC 3.46 mil/uL (4.50-6.00); RDW 20.2 % (10.5-14.5); WBC 10.5 thou/uL (4.0-11.0)
[2018-05-07 04:16] LABS: CALCIUM 7.8 mg/dL (8.5-10.1); CREATININE 0.7 mg/dL (0.7-1.3); POTASSIUM 3.8 mmol/L (3.5-5.1)
[2018-05-08] VITALS (13 sets, daily range): BP systolic 89–112; BP diastolic 55–82
[2018-05-08 05:47] LABS: HEMATOCRIT 23.7 % (42.0-52.0); HEMOGLOBIN 7.2 gm/dL (14.0-18.0); MCH 20.7 pg (26.0-34.0); MCHC 30.3 g/dL (28.0-37.0); MCV 68.3 fL (80.0-100.0); RBC 3.47 mil/uL (4.50-6.00); RDW 20.1 % (10.5-14.5); WBC 14.9 thou/uL (4.0-11.0)
[2018-05-08] MEDS ORDERED: MSL20MG/ML PO (15:39)
[2018-05-08] MEDS ORDERED: ATIVAN0.5 MG PO (15:39)
[2018-05-08] MEDS ORDERED: HALDOL 0.5 MG0.5 MG PO (15:39)
== END 2018-05-08 15:51 | disposition hospice, inpatient (51) | DRG 853 ==
LOC: ER 14:15 → EROBS 16:07 → ICU 16:07
PROVIDERS: Emergency Medicine; Hospitalist; Internal Medicine Pulmonary Disease; Specialist
PROC: 5A1955Z Respiratory Ventilation, Greater than 96 Consecutive Hours (ICD-10-PCS; principal; 2018-04-27)
PROC: 0BH17EZ Insertion of Endotracheal Airway into Trachea, Via Natural or Artificial Opening (ICD-10-PCS; principal; 2018-04-27)
PROC: 05HY33Z Insertion of Infusion Device into Upper Vein, Percutaneous Approach (ICD-10-PCS; principal; 2018-04-27)
PROC: 30233N1 Transfusion of Nonautologous Red Blood Cells into Peripheral Vein, Percutaneous Approach (ICD-10-PCS; 2018-04-29)
PROC: 0BD38ZX Extraction of Right Main Bronchus, Via Natural or Artificial Opening Endoscopic, Diagnostic (ICD-10-PCS; 2018-04-30)
PROC: 07B13ZX Excision of Right Neck Lymphatic, Percutaneous Approach, Diagnostic (ICD-10-PCS; 2018-05-02)
DX: A41.9 Sepsis, unspecified organism (principal); L89.313 Pressure ulcer of right buttock, stage 3; R65.21 Severe sepsis with septic shock; J18.9 Pneumonia, unspecified organism; E43 Unspecified severe protein-calorie malnutrition; J96.01 Acute respiratory failure with hypoxia; G93.40 Encephalopathy, unspecified; J98.11 Atelectasis; I74.9 Embolism and thrombosis of unspecified artery; I82.611 Acute embolism and thrombosis of superficial veins of right upper extremity; I82.A11 Acute embolism and thrombosis of right axillary vein; I82.621 Acute embolism and thrombosis of deep veins of right upper extremity; E87.0 Hyperosmolality and hypernatremia; I73.9 Peripheral vascular disease, unspecified; F17.220 Nicotine dependence, chewing tobacco, uncomplicated; I48.91 Unspecified atrial fibrillation; R59.0 Localized enlarged lymph nodes; D50.9 Iron deficiency anemia, unspecified; Z66 Do not resuscitate; I95.9 Hypotension, unspecified; Z82.49 Family history of ischemic heart disease and other diseases of the circulatory system; Z86.718 Personal history of other venous thrombosis and embolism; Z88.8 Allergy status to other drugs, medicaments and biological substances; Z68.32 Body mass index [BMI] 32.0-32.9, adult; Z83.3 Family history of diabetes mellitus
CPT/HCPCS: 10078; 27000